=== PATIENT | male | born 1965 ===

== ENCOUNTER 2018-12-11 15:41 | Emergency (ER) | payer OTHER ==
[~2018-12-11] VITALS: Ht 182.9 cm; Wt 113.4 kg
[2018-12-11] MEDS ORDERED: BISOPROLOL-HCT1 EACH (15:57)
[2018-12-11] MEDS ORDERED: FORTAMET1000 MG (15:57)
[2018-12-11] MEDS ORDERED: ALTACE10 MG (15:57)
[2018-12-11] MEDS ORDERED: COZAAR100 MG (15:57)
[2018-12-11] MEDS ORDERED: DOXAZOSIN MESYLA1 MG (15:58)
[2018-12-11] MEDS ORDERED: LANTUS SOL100 UNIT/1 (15:58)
[2018-12-11] MEDS ORDERED: SKELAXIN800 MG PO (20:48)
[2018-12-11] MEDS ORDERED: KETO10TA2 PO (20:48)
== END 2018-12-11 20:55 | disposition home or self-care (01) ==
LOC: ER 15:41
DX: S20.211A Contusion of right front wall of thorax, initial encounter (principal); S30.0XXA Contusion of lower back and pelvis, initial encounter; S60.212A Contusion of left wrist, initial encounter; V49.9XXA Car occupant (driver) (passenger) injured in unspecified traffic accident, initial encounter; Y93.89 Activity, other specified; Y92.488 Other paved roadways as the place of occurrence of the external cause; Y99.8 Other external cause status